=== PATIENT | female | born 1955 | race Caucasian/White ===

== ENCOUNTER → 2017-07-19 | Outpatient (CLI) | payer OTHER | LOC: FIMAGING 10:45 | PROVIDERS: ATTEND Orthopaedic Surgery | DX: Z01.818 Encounter for other preprocedural examination (principal); M17.12 Unilateral primary osteoarthritis, left knee ==

== ENCOUNTER 2017-09-30 07:12 | Observation (INO) | payer OTHER ==
--- NOTE | 2017-09-30 06:26 | PDHPUP ---
History & Physical Update H&P update statement: This history and physical update is based on an assessment of the patient which was completed after admission or registration (within 24 hours), but prior to the surgery/procedure. H&P update: no change in patient's condition since H&P completed
--- NOTE | 2017-09-30 06:26 | PDIAF ---
- Diagnosis Diagnosis: left knee djd Code Status: Full Code - Medication Management Discharge Medications: Medications to Continue on Transfer Levothyroxine [Synthroid 112 mcg (*)] 112 mcg PO DAILY06 09/02/17 [Last Taken Unknown] Discharge Medications: Refer to the Discharge Home Medication list for PRN reason. - Orders Services needed: Physical Therapy Diet Recommendation: no restrictions on diet Diet Texture: Regular Texture Diet Activity/Weight Bearing Restrictions: wbat. rom as edward. ice prn. may shower without bandage. no soaking. daily dressing change if dressing becomes saturated. seek attn for increasing pain, cp, sob, drainage, redness or other focal complaint. f/u at two weeks Additional Instructions: wbat rom as edward ice prn may shower without bandage no soaking daily dressing change if dressing becomes saturated seek attn for increasing pain, cp, sob, drainage, redness or other focal complaint f/u at two weeks TOTAL JOINT ARTHROPLASTY DISCHARGE INSTRUCTIONS 1. Your surgeon follows the [facility] protocol for reducing your risk of DVT (blood clots) following surgery. Medication will be ordered to prevent blood clots. A sudden increase in calf pain and/or swelling could indicate a blood clot in your leg. If this occurs, please call your surgeon or his/her social and human services assistant. An ultrasound of the leg may be necessary to diagnose a blood clot. If you have conditions that make you a higher risk for blood clots, your surgeon may use more aggressive ways to prevent them. Notify your surgeon if you think you are a high risk for blood clots. 2. Wear your white surgical stockings (CAROL hose) for 2 weeks. This decreases your swelling and may help prevent blood clots. It is ok to remove CAROL hose at night time to give your legs a break. 3. Swelling and bruising in the surgical leg is common. If you feel that it is excessive, please notify your surgeon. 4. Elevate your surgical leg with the ankle above the hip several times every day. Please keep the leg straight when you elevate by putting pillows under your foot. Do not put pillows under your knee. This will make being able to fully straighten more difficult. This is uncomfortable, but try to do it as much as possible. 5. For total knee replacements use compressive wrap on your knee for 3-5 days after surgery, then you can discontinue it. 6. Use a walker or crutches for 1-2 weeks. Progress your weight-bearing as tolerated. You may start to use a cane when you feel stable and safe. 7. You will receive physical therapy instructions in the hospital. Continue those exercises at home. There are additional exercises in the total joint booklet you were given before surgery. Outpatient physical therapy will begin 7- 10 days after surgery. Please schedule this in advance. 8. Use ice on your knee at least 3-5 times every day for 30 minutes. This helps reduce pain and swelling. Also use it at night before falling asleep. 9. Leave your surgical dressing in place for 2 weeks. Your dressing is water resistant, but not waterproof. Cover it with Saran Wrap or [id number]-Zvfi before showering. You may shower as soon as you feel safe entering a shower. If you notice bleeding from your incision 2 or 3 days after surgery, please notify your surgeon. 10. Due to narcotics, decreased activity and altered diet, most patients experience constipation after surgery. Use snyx-ood-[id number] stool softeners while you are on narcotics. 11. You may drive a car when you are comfortable bearing weight, have good muscular control of your leg and are off narcotics. This usually occurs 2-4 weeks after surgery, depending on which leg was operated on. 12. If there are questions not addressed here, please refer the [facility] book given for more information. If you still have questions, please contact your surgeon s office. 13. If you have a life-threatening emergency, please call 911 and go to the emergency room immediately. For non-life threatening emergencies, please call your physicians office for advice before going to the emergency room. - Follow Up Care Current Providers and Referrals: Valdo Perkins MD [Medical Doctor] - Lillie Calvert NP [Primary Care Provider] -
[2017-09-30] MEDS ORDERED: ceFAZolin 2 GM/DEXTROSE 100 ML IV ONE (07:18)
[2017-09-30] MEDS ORDERED: FAMOTIDINE 20 MG TAB PO ONE (07:18)
[2017-09-30] MEDS ORDERED: LIDOCAINE 1% 2 ML INJ ID PRN (07:20)
[2017-09-30] MEDS ORDERED: LR 1,000 ML IV ONE (07:20)
[2017-09-30] MEDS ORDERED: ACETAMINOPHEN 325 MG TAB PO ONE (08:00)
[2017-09-30] MEDS ORDERED: ROPIVACAINE 0.2% 80 MG, EPINEPHrine 0.2 MG, KETOROLAC TROMETHAMINE 30 MG in SYRINGE 0 ML IU ONE (08:00)
[2017-09-30] MEDS ORDERED: TRANEXAMIC ACID 1,000 MG in NS 100 ML IV ONE (08:00)
[2017-09-30] MEDS ORDERED: MIDAZOLAM 2 MG/2 ML VIAL IVP ONE (08:39)
[2017-09-30] MEDS ORDERED: THROMBIN (BOVINE) 5,000 UNIT VIAL TP ONE (08:39)
[2017-09-30] MEDS ORDERED: CALCIUM CHLORIDE 1 GM/10 ML INJ ONE (08:39)
[2017-09-30] MEDS ORDERED: ceFAZolin 1 GM/5 ML SYR ONE (08:40)
--- NOTE | 2017-09-30 08:51 | PDANEPAE ---
ANE History of Present Illness 61 year old with left knee arthritis ANE Past Medical History - Cardiovascular History Hx Hypertension: No Hx Arrhythmias: No Hx Chest Pain: No Hx Coronary Artery / Peripheral Vascular Disease: No Hx CHF / Valvular Disease: No Hx Palpitations: No - Pulmonary History Hx COPD: No Hx Asthma/Reactive Airway Disease: No Hx Recent Upper Respiratory Infection: No Hx Oxygen in Use at Home: No Hx Sleep Apnea: No Sleep Apnea Screening Result - Last Documented: Negative - Neurologic History Hx Cerebrovascular Accident: No Hx Seizures: No Hx Dementia: No - Endocrine History Hx Diabetes: No Endocrine History Comment: HYPOTHYROID - Renal History Hx Renal Disorders: No - Liver History Hx Hepatic Disorders: No - Neurological & Psychiatric Hx Hx Neurological and Psychiatric Disorders: No - Cancer History Hx Cancer: No - Congenital Disorder History Hx Congenital Disorders: No - GI History Hx Gastrointestinal Disorders: No - Other Health History Other Health History: OSTEOARTHRITIS - Chronic Pain History Chronic Pain: Yes (LT KNEE) - Surgical History Prior Surgeries: MARITZA 2015. APPY. TUBAL LIGATION. HYSTERECTOMY. TONSILLECTOMY. X2. LT KNEE SCOPE X2 ANE Review of Systems Review of systems is: negative Review of Systems: - Exercise capacity METS (RN): 4 METS ANE Patient History - Allergies Allergies/Adverse Reactions: latex Allergy (Verified 09/05/17 14:09) Rash meperidine HCl [From Demerol] Allergy (Verified 09/05/17 14:08) HALLUCINATIONS oxycodone [Oxycodone] Allergy (Verified 09/05/17 14:08) GI SYMPTOMS Sulfa (Sulfonamide Antibiotics) Allergy (Verified 09/05/17 14:08) GI SYMPTOMS zinc Allergy (Verified 09/05/17 14:08) GI SYMPTOMS - Home Medications Home Medications: Levothyroxine [Synthroid 112 mcg (*)] 112 mcg PO DAILY06 09/02/17 [Last Taken 05:50] - NPO status NPO Status: no food or drink >8 hours NPO Since - Liquids (Date): 09/30/17 NPO Since - Liquids (Time): 07:50 NPO Since - Solids (Date): 09/29/17 NPO Since - Solids (Time): 20:30 - Anes Hx Anes Hx: no prior problems - Smoking Hx Smoking Status: Former smoker - Alcohol Use Alcohol Use: Occasionally ANE Labs/Vital Signs - Vital Signs Blood Pressure: 118/78 Heart Rate: 72 Respiratory Rate: 16 O2 Sat (%): 96 Height: 154.94 cm Weight: 99.79 kg ANE Physical Exam - Airway Neck exam: FROM Mallampati Score: Class 1 Mouth exam: normal dental/mouth exam - Pulmonary Pulmonary: no respiratory distress, clear to auscultation - Cardiovascular Cardiovascular: regular rate and rhythym - ASA Status ASA Status: II ANE Anesthesia Plan Anesthesia Plan: spinal Regional Anesthesia: adductor canal FNB
[2017-09-30] MEDS ORDERED: fentaNYL 100 MCG/2 ML INJ ONE ×2 (09:38→10:59)
[2017-09-30] MEDS ORDERED: PROPOFOL/EMULSION 500 MG/50 ML BOTTLE IV ONE ×2 (09:38→10:38)
[2017-09-30] MEDS ORDERED: ROPIVACAINE HCL 150 MG/30 ML INJ ONE (10:38)
[2017-09-30] MEDS ORDERED: DEXAMETHASONE 4 MG/ML VIAL ONE (10:38)
[2017-09-30] MEDS ORDERED: ONDANSETRON 4 MG/2 ML VIAL ONE (10:39)
[2017-09-30] MEDS ORDERED: ONDANSETRON DISINTEGRATING 4 MG TAB PO PRN (10:48)
[2017-09-30] MEDS ORDERED: BISACODYL 10 MG SUPP PR PRN (10:48)
[2017-09-30] MEDS ORDERED: PROMETHAZINE HCL 25 MG SUPPR PR PRN (10:48)
[2017-09-30] MEDS ORDERED: LACTULOSE 20 GM/30 ML UDCUP PO PRN (10:48)
[2017-09-30] MEDS ORDERED: diphenhydrAMINE 25 MG CAP PO PRN (10:48)
[2017-09-30] MEDS ORDERED: DIPHENOXYLATE/ATROPINE LOMOTIL 1 TAB PO PRN (10:48)
[2017-09-30] MEDS ORDERED: ONDANSETRON 4 MG/2 ML VIAL IVP PRN ×2 (10:48→11:21)
[2017-09-30] MEDS ORDERED: MAGNESIUM HYDROXIDE 30 ML UDCUP PO PRN (10:48)
[2017-09-30] MEDS ORDERED: CYCLOBENZAPRINE 10 MG TAB PO PRN (10:48)
[2017-09-30] MEDS ORDERED: POLYETHYLENE GLYCOL 3350 17 GM PKT PO PRN (10:48)
[2017-09-30] MEDS ORDERED: METOCLOPRAMIDE 10 MG/2 ML VIAL IVP PRN (10:48)
[2017-09-30] MEDS ORDERED: PROMETHAZINE HCL 25 MG/ML INJ IVP PRN ×2 (10:48→11:21)
[2017-09-30] MEDS ORDERED: TEMAZEPAM 15 MG CAP PO PRN (10:48)
--- NOTE | 2017-09-30 10:48 | POSTOPPROG ---
Post Op Note Date of Operation: 09/30/17 Surgeon: Valdo Perkins Service Director: rolando Anesthesiologist: warm Anesthesia: GET(General Endotracheal), IV Sedation, Spinal Pre-op Diagnosis: left knee djd Post-op Diagnosis: same Indication: same Procedure: left tka Inf/Abcess present in the surg proc area at time of surgery?: No Depth: Deep Incisional (Fascial) EBL: 100-500
[2017-09-30] MEDS ORDERED: HYDROCODONE/APAP 10/325 TAB PO PRN (10:50)
[2017-09-30] MEDS ORDERED: TRANEXAMIC ACID 650 MG TAB PO SCH (11:00)
[2017-09-30] MEDS ORDERED: LR 1,000 ML IV SCH (11:00)
[2017-09-30] MEDS ORDERED: NALOXONE HCL 0.4 MG/ML INJ IVP PRN (11:21)
[2017-09-30] MEDS ORDERED: fentaNYL 100 MCG/2 ML INJ IVP PRN (11:21)
--- NOTE | 2017-09-30 11:23 | POSTANESTH ---
Post Anesthetic Evaluation Cardiovascular Status: Normal, Stable Respiratory Status: Normal, Stable Level of Consciousness/Mental Status: Can Participate in Eval Pain Control: Adequate, Prn Tx Ordered Nausea/Vomiting Control: Adequate, Prn Tx Ordered Complications Possibly Related to Anesthesia: None Noted
[2017-09-30] MEDS: ACETAMINOPHEN 325 MG TAB PO SCH ×2 (12:54→19:45)
[2017-09-30] MEDS: traMADol 50 MG TAB PO PRN (16:03)
[2017-09-30] MEDS: ceFAZolin 2 GM/DEXTROSE 100 ML IV SCH (18:00)
[2017-09-30] MEDS: TRANEXAMIC ACID 650 MG TAB PO SCH (19:45)
[2017-09-30] MEDS: SENNOSIDES/DOCUSATE SODIUM TAB PO SCH (22:04)
[2017-09-30] MEDS: FAMOTIDINE 20 MG TAB PO SCH (22:04)
[2017-09-30] MEDS: ASPIRIN 325 MG TAB PO SCH (22:05)
[2017-10-01] MEDS: ACETAMINOPHEN 325 MG TAB PO SCH ×2 (00:10→06:26)
[2017-10-01] MEDS: traMADol 50 MG TAB PO PRN ×2 (00:11→10:09)
[2017-10-01] MEDS: ceFAZolin 2 GM/DEXTROSE 100 ML IV SCH (00:14)
[2017-10-01] MEDS: TRANEXAMIC ACID 650 MG TAB PO SCH ×2 (02:44→10:09)
[2017-10-01] MEDS ORDERED: LEVOTHYROXINE 112 MCG TAB PO SCH (06:00)
--- NOTE | 2017-10-01 07:23 | PDIAF ---
- Diagnosis Diagnosis: left knee djd Code Status: Full Code - Medication Management Discharge Medications: Medications to Continue on Transfer Levothyroxine [Synthroid 112 mcg (*)] 112 mcg PO DAILY06 09/02/17 [Last Taken 05:50] Aspirin [Aspirin 325 mg (*)] 325 mg PO DAILY tab 10/01/17 [Last Taken Unknown] Cyclobenzaprine [Flexeril 10 MG (*)] 10 mg PO Q8HRS PRN #30 tab 10/01/17 [Last Taken Unknown] traMADol [Ultram 50 mg (*)] 50 mg PO Q6HRS PRN #60 tab 10/01/17 [Last Taken Unknown] Discharge Medications: Refer to the Discharge Home Medication list for PRN reason. - Orders Services needed: Physical Therapy Diet Recommendation: no restrictions on diet Diet Texture: Regular Texture Diet Activity/Weight Bearing Restrictions: wbat. rom as edward. ice prn. may shower without bandage. no soaking. daily dressing change if dressing becomes saturated. seek attn for increasing pain, cp, sob, drainage, redness or other focal complaint. f/u at two weeks Additional Instructions: wbat rom as edward ice prn may shower without bandage no soaking daily dressing change if dressing becomes saturated seek attn for increasing pain, cp, sob, drainage, redness or other focal complaint f/u at two weeks TOTAL JOINT ARTHROPLASTY DISCHARGE INSTRUCTIONS 1. Your surgeon follows the [facility] protocol for reducing your risk of DVT (blood clots) following surgery. Medication will be ordered to prevent blood clots. A sudden increase in calf pain and/or swelling could indicate a blood clot in your leg. If this occurs, please call your surgeon or his/her geriatric nurse assistant. An ultrasound of the leg may be necessary to diagnose a blood clot. If you have conditions that make you a higher risk for blood clots, your surgeon may use more aggressive ways to prevent them. Notify your surgeon if you think you are a high risk for blood clots. 2. Wear your white surgical stockings (CAROL hose) for 2 weeks. This decreases your swelling and may help prevent blood clots. It is ok to remove CAROL hose at night time to give your legs a break. 3. Swelling and bruising in the surgical leg is common. If you feel that it is excessive, please notify your surgeon. 4. Elevate your surgical leg with the ankle above the hip several times every day. Please keep the leg straight when you elevate by putting pillows under your foot. Do not put pillows under your knee. This will make being able to fully straighten more difficult. This is uncomfortable, but try to do it as much as possible. 5. For total knee replacements use compressive wrap on your knee for 3-5 days after surgery, then you can discontinue it. 6. Use a walker or crutches for 1-2 weeks. Progress your weight-bearing as tolerated. You may start to use a cane when you feel stable and safe. 7. You will receive physical therapy instructions in the hospital. Continue those exercises at home. There are additional exercises in the total joint booklet you were given before surgery. Outpatient physical therapy will begin 7- 10 days after surgery. Please schedule this in advance. 8. Use ice on your knee at least 3-5 times every day for 30 minutes. This helps reduce pain and swelling. Also use it at night before falling asleep. 9. Leave your surgical dressing in place for 2 weeks. Your dressing is water resistant, but not waterproof. Cover it with Saran Wrap or Mnhgk-i-Lalo before showering. You may shower as soon as you feel safe entering a shower. If you notice bleeding from your incision 2 or 3 days after surgery, please notify your surgeon. 10. Due to narcotics, decreased activity and altered diet, most patients experience constipation after surgery. Use tmsg-gap-jqlmjio stool softeners while you are on narcotics. 11. You may drive a car when you are comfortable bearing weight, have good muscular control of your leg and are off narcotics. This usually occurs 2-4 weeks after surgery, depending on which leg was operated on. 12. If there are questions not addressed here, please refer the [facility] book given for more information. If you still have questions, please contact your surgeon s office. 13. If you have a life-threatening emergency, please call 911 and go to the emergency room immediately. For non-life threatening emergencies, please call your physicians office for advice before going to the emergency room. - Follow Up Care Current Providers and Referrals: Valdo Perkins MD [Medical Doctor] - Lillie Calvert NP [Primary Care Provider] -
--- NOTE | 2017-10-01 07:25 | SOAPPROG ---
SOAP Progress Note Assessment/Plan: Assessment: s/p tka Plan:dvt precautions d;c home f/u at two weeks 10/01/17 07:23 Subjective: no cp or sob edward po Objective: Vital Signs Temp Pulse Resp BP Pulse Ox 36.8 C 78 16 100/61 92 10/01/17 04:00 10/01/17 04:00 10/01/17 04:00 10/01/17 04:00 10/01/17 04:00 Laboratory Results 10/01/17 04:30 09/30/17 10/01/17 10/02/17 05:59 05:59 05:59 Intake Total 1750 Output Total 1000 2400 Balance -1000 -650 dressing intact mod serrous drainage intact pf,df,ehl neg homans arlin xrays stable alignment, no fx or lucency ICD10 Worksheet Patient Problems: Problems Problem Status Onset Acute calculous cholecystitis Acute
[2017-10-01] MEDS: FAMOTIDINE 20 MG TAB PO SCH (07:48)
[2017-10-01] MEDS: SENNOSIDES/DOCUSATE SODIUM TAB PO SCH (07:48)
[2017-10-01] MEDS: ASPIRIN 325 MG TAB PO SCH (07:48)
--- NOTE | 2017-10-01 11:37 | ASDISCHSUM ---
Discharge Information Plan Status:Home with Home Health Medically Cleared to Leave: Discharge Date:10/01/2017 11:22 AM CM D/C Disposition:Home Health Service ADT D/C Disposition:Home Health Service Projected Discharge Date:10/01/2017 11:00 AM Transportation at D/C:Family Discharge Delay Reason: Follow-Up Date:10/01/2017 11:00 AM Discharge Slot: Final Diagnosis: Placement Information Referral Type:*Home Health Care Services Referral ID:[id number] Provider Name:[facility] Address 1:[address] [place] [address] Address 2: City:[place] Selection Factors: State:[place] Patient Contact Information Contact Name:LAZARO Relationship: Address:[address] [facility] City:[place] Alternate Phone: State/Zip Code:[place] [address] Email: Financial Information Financial Class:HMO and PPO Plans Primary Plan Desc:[facility] Primary Plan Number:[id number] Secondary Plan Desc: Secondary Plan Number: Assessment Information BC CM Progress Note CM Note CM Note Notes: Pt medically stable for d/c with [facility] PT. Pt address/phone verified. Orders to be obtained via [employer]. Date Signed: 10/01/2017 11:36 AM Electronically Signed By:CLAYTON Anne Intervention Information Intervention Type:*Incorrect Registration Date of Service:09/30/2017 03:14 PM Patient Type:Observation Staff Member:EDMOND Islas, Rose Hours: Discipline: Severity: Comment:
[2017-10-01 12:58] VITALS: BP 99/70
--- NOTE | 2017-10-08 22:29 | GDS ---
[f rep st] DISCHARGE SUMMARY ADMISSION DIAGNOSIS: Left knee degenerative joint disease. DISCHARGE DIAGNOSIS: Left knee degenerative joint disease. SURGICAL PROCEDURE: Left total knee arthroplasty, MAKOplasty. HISTORY OF PRESENT ILLNESS: The patient is a 61-year-old woman who has end-stage arthritis to her le ft knee. She has failed all attempts at conservative management. I have therefore recommended operati ve intervention. I have outlined the surgical procedure, risks, benefits, and alternatives. She wishe d to proceed. Written consent was signed and placed in patient's chart. HOSPITAL COURSE: The patient was admitted to the hospital floor following an uncomplicated total kne e arthroplasty. She tolerated the procedure well. She had no postoperative complications. At the time of discharge, she is tolerating an oral diet. Her pain is well controlled on oral medicines. She is voiding without difficulty. Dressing is clean, dry, and intact. She has negative Homans, and x-rays a re stable. DISCHARGE INSTRUCTIONS/FOLLOWUP: 1. Discharge activity: Weightbearing as tolerated. Range of motion as tolerated. 2. Keep the dressing intact. If it becomes saturated, then daily dressing changes. She may shower ov er the bandage or if it is removed without the bandage. 3. Follow up in 2 weeks. 4. Seek attention for increasing redness, swelling, drainage, discharge, or other focal complaints. DISCHARGE MEDICATIONS: Oxycodone 5 mg 1-2 every 6 hours p.r.n. pain. Ultram 50 mg p.o. q.6 hours p.r .n. pain, aspirin 325 mg p.o. daily. /[id number]/MODL
--- NOTE | 2017-10-08 22:29 | GOP ---
[f rep st] OPERATIVE REPORT DATE OF OPERATION: 09/30/2017 SURGEON: Valdo Perkins MD TERMINAL CLERK: Reinier Lovell, POUND KEEPER, CIVIL CAD DESIGNER, rn surgical whose medical necessity for the entirety of the case. PREOPERATIVE DIAGNOSIS: Left knee degenerative joint disease. POSTOPERATIVE DIAGNOSIS: Left knee degenerative joint disease. PROCEDURE PERFORMED: Left total knee arthroplasty. FINDINGS: SPECIMENS: To pathology none. DESCRIPTION OF PROCEDURE: The patient was identified in the preanesthesia area. The left knee clearl y demarcated as the operative site with indelible marker. She was given 1 g of vancomycin on route to the operative suite. In the OR spinal anesthetic was placed followed by general endotracheal anesthe marques. She was positioned in the supine position. Attention was turned to the left knee which was steri joshua prepped and draped in usual fashion. A tourniquet was applied to the upper thigh. Appropriate ti me-out procedure was carried out. The limb was exsanguinated with an Esmarch bandage and the tourniqu et inflated to 275 mmHg. A standard anterior midline incision was made. Thick subcutaneous flaps were elevated followed by medial parapatellar arthrotomy. The knee was brought to a flexed position. Ther e was evidence tricompartmental arthritis. Subperiosteal elevation was carried out to the mid coronal plane and retractors were placed. Two pins were then placed over the medial distal femur and the fem oral reference array affixed. Femoral checkpoint was placed. A separate percutaneous incision was mad e over the mid tibia and 2 pins were placed in the tibial reference array placed. Tibial checkpoint w as placed. All bony landmarks were entered into the robot using the software and soft tissue releases . The knee was balanced through the flexion-extension arc. Using the MAKOplasty robot, resections wer e made for a size 3 femur, size 3 tibia, and trial reduction was carried out over a 3 x 9 mm polyethy sandro which revealed full extension and flexion through the flexion-extension arc without instability to varus or valgus stress. These trial components were withdrawn. The surfaces were thoroughly cleans ed and the tibia and femur were press-fit and a 3 x 9 mm polyethylene insert was placed and confirmed to be fully seated. The knee was brought into extension. The patella everted, cut in a freehand cutt ing technique. Drill holes were made for a size 29 mm poly patella and a press-fit patella was then p laced confirmed to be fully seated. The knee was taken through full range of motion, was stable and a ppropriate. The wound was copiously irrigated. The capsule and soft tissues were injected with a join t cocktail of ropivacaine, morphine, Toradol, and epinephrine. The medial parapatellar arthrotomy ailyn sed using #1 Ethibond suture and platelet-rich plasma placed. Subcutaneous tissue closed using 2-0 Mo nocryl. The skin was stapled. Sterile dressing was applied. The patient was awakened, extubated and t aken to recovery room in good stable condition. HISTORY OF THE PRESENT ILLNESS: 61-year-old woman with end-stage arthritis to her left knee. Clinica l and radiographic features are consistent with this. She has failed all attempts at conservative man agement. I have therefore recommended operative intervention with total knee replacement. She underst ood the risks, benefits, alternatives, and wished to proceed. Written consent was signed and placed i n the patient's chart. TOTAL TOURNIQUET TIME: 50 minutes. COMPLICATIONS: None. IMPLANTS: The Rafael triathlon size 3 femur, size 3 tibia, 3 x 9 mm polyethylene and a 29 mm metal- backed poly patella. DISPOSITION: To the recovery room, then the floor. /[id number]/MODL
== END 2017-10-01 11:22 | disposition home health service (06) ==
LOC: INTOOBSV 07:12 → F3N 07:12
PROVIDERS: ADMIT Orthopaedic Surgery; ATTEND Orthopaedic Surgery
PROC: 8E0Y0CZ Robotic Assisted Procedure of Lower Extremity, Open Approach (ICD-10-PCS; principal; 2017-09-30 09:30)
PROC: 0SRD0JZ Replacement of Left Knee Joint with Synthetic Substitute, Open Approach (ICD-10-PCS; principal; 2017-09-30 09:30)
DX: M17.12 Unilateral primary osteoarthritis, left knee (principal); E03.9 Hypothyroidism, unspecified; Z90.710 Acquired absence of both cervix and uterus; Z87.891 Personal history of nicotine dependence
CPT/HCPCS: 27447; 73560; 97110; 97161; 97165; G0378; J0171; J0690; J1100; J1885; J2250; J2405; J2704; J2795; J3010